=== PATIENT | male | born 1950 | race Caucasian/White ===

== ENCOUNTER 2017-03-05 06:48 | Day surgery (SDC) | payer MEDICARE, MEDICAID ==
[2017-03-05] VITALS (7 sets, daily range): BP systolic 101–118; BP diastolic 43–73
[~2017-03-05] VITALS: Ht 172.7 cm; Wt 73.9 kg
[2017-03-05 06:43] LABS: LYMPH # 3.6 K/mm3 (0.7-4.5); LYMPH % 39.9 % (10-50)
[~2017-03-05 06:48] MED LIST: FLAXSEED OIL1000 MG PO; FLOMAX 0.4MG C0.4 MG PO; LEVOTHYROXIN0.075 M1 PO; LOSARTAN POTASS1 TA1 PO; LOSARTAN POTASS50 MG PO; METOPROLOL TART50 MG PO; NATURAL ZINC50 MG PO; NIASPAN500 MG PO; RANITIDINE HCL150 MG PO; VERAPAMIL SR 2240 MG PO
--- NOTE | 2017-03-05 06:53 | Emergency Room Report ---
History of Present Illness Time Seen by MD Hernandez Presenting Problem in Triage Pt arrived:Walked Presenting Problem:PT C/O MID STERNAL CHEST PRESSURE THAT WOKE HIM UP THIS MORNING. PT ALSO C/O NAUSEA AND SOB SINCE THIS MORNING. 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 N Clinical Suspician of Infection? N Mental Status: 1 - Regular (Normal Baseline) Sepsis Risk:Low Sepsis Risk Have you (or family members/close friends) recently traveled outside the [place]? N If Yes, where/when: Have you had exposure to infectious disease within the past month? N TB? Other? Specify: Source patient, RN notes reviewed, family, old records Exam Limitations no limitations Comment pt reports pressure like chest pain yesterday and today - pt with sob assoc this pain - he has no known ht disease- Cardiac Chest Pain Chest pain indicative of cardiac Yes Timing/Duration 1-3 hours, intermittent Severity/Quality moderate, pressure Location central Chest Pain Radiation no radiation Activities at Onset light activity Nitro Today/Relief 0.4 mg x 1, provided by ED, mild relief Aspirin Treatment Today 325 mg x 1, provided by ED Beta antoinette treatment today no beta antoinette taken Cardiac risk factors + family history, HTN controlled Prior Workup/Intervention stress test Timing/Duration this morning Severity moderate ALLERGIES Coded Allergies: codeine (NA-HALLUCINATIONS 08/22/16) paroxetine (08/22/16) sertraline (UPSET STOMACH 08/22/16) Home Medications Reported Medications VERAPAMIL HCL (Verapamil ER) 240 MG PO DAILY Ranitidine Hcl (Ranitidine 150MG) 150 MG PO BID Levothyroxine Sodium (Levothyroxine 0.075MG) 0.05 MG PO DAILY LOSARTAN/HYDROCHLOROTHIAZIDE (Losartan-Hctz 100-25 MG Tab) 1 TAB PO DAILY #30 History Medical History General CAD? No Angina: No VT: No Hypertension? Yes Hyperlipidemia? Yes CHF? No DVT? No PE? No COPD? No Asthma? Yes Anemia? No GERD? No Gastric ulcers? No GI Bleed? No Hernia? No Thyroid Problems? Yes Hypothyroidism? No CVA? No Seizures? No Diabetes? No Renal Insuffiency? No End Stage Renal Disease? No UTI? No Stones? Yes BPH? No GB Disease: No Nephritic Syndrome? No Asplenia? No Hepatitis? No Sickle Cell Disease? No Arthritis? Yes Migraines? No Cataracts? No Glaucoma? No HIV? No TB? No Anxiety? No Depression? No Cancer? No More? No Immunization Hx DT/Tetanus 5-10 YRS Flu REFUSES Pneumonia REFUSES Surgical Hx Previous Surgery?Y L LEG TUMOR REMOVED 1980 L EAR SURGERY 4-5X'S Family History Family Hx Diabetes No CAD Yes Hypertension Yes Hyperlipidemia No Cancer No TB No Social History Smoking Hx Smoker: Former Smoker Tobacco: Yes Type Cigarettes Packs/day < 1 Pack Alcohol Alcohol: No Drugs none Review of Systems All Other Systems Reviewed and Negative Constitutional denies fever Eyes denies drainage ENT denies: ear pain, epistaxis, throat pain. Respiratory see HPI, denies cough, shortness of breath Cardiovascular see HPI, chest pain, denies palpitations, denies syncope Gastrointestinal denies abdominal pain, denies diarrhea, denies vomiting Genitourinary denies: dysuria, frequency, hesitancy, hematuria. Musculoskeletal denies back pain, denies joint pain, denies joint swelling, denies neck pain Skin denies rash Psychiatric/Neurological denies headache, denies seizure Physical Exam Vital Signs Vital Signs Date Time Temp Pulse Resp B/P Pulse O2 O2 Flow FiO2 Ox Delivery Rate 03/05 0809 66 18 138/80 98 03/05 0733 65 18 135/72 93 03/05 0656 18 03/05 0630 97.7 69 20 158/94 98 - WBC >12,000 or <4,000 or 10% bands? 2 or more SIRS Criteria Met? B/P:135/72 MAP:115 Creatinine >2.0? UA output<0.5ml/kg/hr for 2 hrs? Platelet count >100,000? Lactate >2.0mmol/1? INR >1.2 or PTT > than 60 sec? Evidence of Organ Dysfunction? Provider documented clinical suspician of infection? N Sepsis Criteria Count: 1 Sepsis Risk: Low Sepsis Risk General Appearance no apparent distress Eye Exam - bilateral eye PERRL, bilateral eye EOMI Ear, Nose, Throat normal ENT inspection Neck supple Respiratory Status No: respiratory distress. Lung Sounds bilateral: lungs clear. 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 No Results/Orders Laboratory Tests 03/05/17 0635: Triglycerides 172, Cholesterol 225 H, LDL Cholesterol 144.6 H, VLDL Cholesterol 34.4, HDL Cholesterol 46.0 03/05/1735: Sodium Cancelled, Potassium Cancelled, Chloride Cancelled, Carbon Dioxide Cancelled, BUN Cancelled, Creatinine Cancelled, Estimated Creat Clear Cancelled, Estimated GFR (MDRD) Cancelled, Glucose Cancelled, Calcium Cancelled, Total Bilirubin Cancelled, AST Cancelled, ALT Cancelled, Alkaline Phosphatase Cancelled, Total Protein Cancelled, Albumin Cancelled, Globulin Cancelled, Albumin/Globulin Ratio Cancelled 03/05/1735: Sodium 139, Potassium 3.9, Chloride 102, Carbon Dioxide 30, BUN 13, Creatinine 1.0, Estimated Creat Clear 77, Estimated GFR (MDRD) 75, Glucose 137 H, Calcium 9.0, Total Bilirubin 0.5, AST 25, ALT 33, Alkaline Phosphatase 74, Creatine Kinase 391 H, CK-MB (CK-2) Rel Index 0.9, CK and CKMB Interp 3.4, Troponin I 0.02, Total Protein 7.3, Albumin 3.7, Globulin 3.6 H, Albumin/Globulin Ratio 1.0 L, WBC 9.1, RBC 4.88, Hgb 15.0, Hct 44.2, MCV 90.6, RDW 12.5, Plt Count 280 , MPV 5.4 L, Gran % 45.5, Gran # 4.1, Lymphocytes % 39.9, Monocytes % 7.9, Eosinophils % 5.8, Basophils % 0.9, Lymphocytes # 3.6, Monocytes # 0.7, Eosinophils # 0.5 H, Basophils # 0.1, PUBS MCHC 33.9, MCH 30.7 Current Medication Orders Sig/Carrie Start time Last Medication Dose Route Stop Time Status Admin Nitroglycerin 1 IN ONCE ONE 03/05 0715 DC 03/05 TP 03/05 0716 0712 Nitroglycerin 0 .STK-MED ONE 03/05 0709 DC .ROUTE Nitroglycerin 0.4 MG [id number] PRN 03/05 0700 AC 03/05 SL 0656 Nitroglycerin 0 .STK-MED ONE 03/05 0651 DC SL Aspirin 324 MG ONCE ONE 03/05 0645 DC 03/05 PO 03/05 0646 0639 Aspirin 0 .STK-MED ONE 03/05 0637 DC .ROUTE Orders Procedure Date/time Status ECHO ADULT 03/05 0739 Active LIPID PROFILE 03/05 0739 Complete CHEST-PORTABLE 03/05 0715 Active ELECTROCARDIOGRAM REQUEST 03/05 0634 Active AA CM CONSULT NEEDED QUERY 03/05 0634 Active IV SALINE LOCK 03/05 0634 Active CBC WITH AUTO DIFF 03/05 0634 Complete CARDIAC ENZYMES 03/05 0634 Complete CHEM 12 PROFILE 03/05 0634 Complete 12 LEAD EKG-JD (INITIAL) 03/05 UNK Active 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 ST/Twave chgs XRAY/CT/US XRAY/CT/US XRAY chest XR interpretation by reviewed by me Xray Results abnormal (cm) Departure Departure Time of Disposition 0744 Disposition DC Home or Self Care(routine) Clinical Impression Primary Impression: Angina pectoris Condition STABLE Referrals Jazzy ARROYO,Christa Negrete (Family) discussed with dr bishop and will ask dr rubi to see pt in the ed ED Critical Care Critical Care No at 0824
--- NOTE | 2017-03-05 08:40 | CONSULT NOTE ---
Standard Demographics Patient Demo Date of Consultation: 03/05/17 Referring Provider: Dipika Davis MD Reason for Consultation: Angina PRIMARY DIAGNOSIS: chest pain Problem list Problem list: 1. Hypertension 2. Hyperlipidemia 3. Patient was adopted and does not know his family history 4. History of normal stress test with nuclear imaging, 2012. History of present illness: History of present illness: 66-year-old white male with history of hypertension and hyperlipidemia presented to the emergency department for recurrent episodes of chest tightness, arm discomfort and shortness of breath with diaphoresis that wake him from sleep. 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 Symptoms have resolved with rest previously. Over the last few days he has noticed the same symptoms occurring at night and waking him from sleep. This is alarming him and he came to the emergency department for further evaluation. Patient currently pain-free. Initial troponins normal. Electrocardiogram is sinus rhythm without acute ST elevation. Cardiology consulted for further evaluation and recommendations. Past Medical History: General: Hypertension Yes CVA No Seizures No TB No COPD No Asthma Yes Diabetes No Angina No HI No Hyperlipidemia Yes Urinary Yes Cancer No Ulcers No GB Disease No Other OLD LT LEG TUMOR,LT DVT Past Surgical HX: Previous Surgery?Y L LEG TUMOR REMOVED 1980 L EAR SURGERY 4-5X'S Allergies Coded Allergies: codeine (NA-HALLUCINATIONS 08/22/16) paroxetine (08/22/16) sertraline (UPSET STOMACH 08/22/16) Home medications: Reported Medications VERAPAMIL HCL (Verapamil ER) 240 MG PO DAILY Ranitidine Hcl (Ranitidine 150MG) 150 MG PO BID Levothyroxine Sodium (Levothyroxine 0.075MG) 0.05 MG PO DAILY LOSARTAN/HYDROCHLOROTHIAZIDE (Losartan-Hctz 100-25 MG Tab) 1 TAB PO DAILY #30 Current Medications: Current Medications Nitroglycerin 1 IN ONCE ONE TP (DC) Nitroglycerin 0 .STK-MED ONE .ROUTE (DC) Nitroglycerin 0.4 MG [id number] PRN SL Nitroglycerin 0 .STK-MED ONE SL (DC) Aspirin 324 MG ONCE ONE PO (DC) Aspirin 0 .STK-MED ONE .ROUTE (DC) Immunization HX DT/Tetanus 5-10 YRS AGO Flu REFUSES Pneumonia REFUSES Family history Family HX Family Hx Insignificant No Diabetes No CAD Yes Hypertension Yes Hyperlipidemia No Cancer No TB No Social Hx: Smoking HX Tobacco Yes Type Cigarettes Packs/day < 1 PACK Alcohol Alcohol: No Hx of Drug Use Drug Use? No Patien't marital status is single Patient's support system is good Review of systems: Constitutional weakness. Respiratory SOB with excertion. Cardiovascular chest pain Gastrointestinal/Abdominal No no symptoms reported Genitourinary No: no symptoms reported. Musculoskeletal No: no symptoms reported. Neurological No: no symptoms reported. Exam: Admission Vital Signs: 1ST Vital Signs Result Date Time Pulse Ox 98 03/05 630 B/P 158/94 03/05 630 Temp 97.7 03/05 630 Pulse 69 03/05 0630 Resp 20 03/05 630 Last Vital Signs: Vital Signs Result Date Time Pulse Ox 98 03/05 0809 B/P 138/80 03/05 0809 Pulse 66 03/05 0809 Resp 18 03/05 0809 Temp 97.7 03/05 630 Exam General appearance: alert, awake, no acute distress Neck: no carotid bruit, no JVD Cardiovascular: regular rate & rhythm, soft systolic ejection murmur noted at the base grade 1-2 out of 6. Respiratory: clear to auscultation, good air movement, normal breath sounds ABD: soft, no tenderness Extremities: moves all, no peripheral edema Neuro: alert, intact, oriented Laboratory data: Laboratory Tests 03/05/17 0635: Triglycerides 172, Cholesterol 225 H, LDL Cholesterol 144.6 H, VLDL Cholesterol 34.4, HDL Cholesterol 46.0 03/05/17 0635: Sodium 139, Potassium 3.9, Chloride 102, Carbon Dioxide 30, BUN 13, Creatinine 1.0, Estimated Creat Clear 77, Estimated GFR (MDRD) 75, Glucose 137 H, Calcium 9.0, Total Bilirubin 0.5, AST 25, ALT 33, Alkaline Phosphatase 74, Creatine Kinase 391 H, CK-MB (CK-2) Rel Index 0.9, CK and CKMB Interp 3.4, Troponin I 0.02, Total Protein 7.3, Albumin 3.7, Globulin 3.6 H, Albumin/Globulin Ratio 1.0 L, WBC 9.1, RBC 4.88, Hgb 15.0, Hct 44.2, MCV 90.6, RDW 12.5, Plt Count 280 , MPV 5.4 L, Gran % 45.5, Gran # 4.1, Lymphocytes % 39.9, Monocytes % 7.9, Eosinophils % 5.8, Basophils % 0.9, Lymphocytes # 3.6, Monocytes # 0.7, Eosinophils # 0.5 H, Basophils # 0.1, PUBS MCHC 33.9, MCH 30.7 Plan: Assessment: 1. Angina pectoris previously class III now currently class IV with symptoms waking patient up at night. Initial troponin normal with no acute electrocardiogram changes. Preliminary echocardiogram today shows apical akinesis. 2. History of hypertension 3. Hyperlipidemia with LDL 144. Recommendations: Discussed with Dr. Gómez who did review the echocardiogram and confirmed apical akinesis. In light of an abnormal cardiovascular test and symptoms of angina pectoris class IV patient will be sent for cardiac catheterization today. Further recommend patient is to follow. Patient will be started on a statin due to elevated LDL. at 0842
--- NOTE | 2017-03-05 10:31 | RADIOLOGY REPORT PS360 ---
CARDIAC CATHETERIZATION DATE OF CATHETERIZATION:03/05/2017 9:44 AM PROCEDURES: 1. Left heart catheterization 2. Left ventriculogram 3. Selective coronary angiogram INDICATION FOR TEST: 1. Unstable angina 2. Abnormal echo anterior apical hypokinesis Informed consent was obtained prior to the procedure. COMPLICATIONS: None ESTIMATED BLOOD LOSS: Less than 10 ml. TECHNIQUE: One percent lidocaine used to anesthetize the right anterior aspect of the wrist. The right radial artery was accessed via the Seldinger technique. A 6 Albanian sheath was placed in the right radial artery. 2.5 mg of verapamil, 800 mcg of nitroglycerin and 5000 U Heparin were given through the arterial sheath. The Delaney catheter was also used to perform left heart catheterization and left ventriculography. At the end of the procedure the patient was transferred to the post-op holding area in stable condition for arterial sheath removal. ANGIOGRAPHIC RESULTS: 1. The left main artery normal 2. The left anterior descending artery proximally has a concentric 50% stenosis and then gives off a large trifurcating first septal substation wireman. The septal substation wireman has an ostial 80% stenosis. Immediately distal to the septal substation wireman the LAD is bluntly occluded however the mid to distal LAD does fill via mostly left the left collaterals 3. The circumflex artery is a nondominant vessel and has a proximal 90% stenosis just prior to to medium sized obtuse marginal arteries 4. The right coronary artery is a large dominant vessel and has proximal 20 and 30% stenoses with a mid vessel 60-70% concentric stenosis. There are right to left collaterals supplying the LAD 5. The VANCE ventriculogram reveals mild left ventricular dilatation anterior apical hypokinesis estimated ejection fraction 40% 6. The left ventricular end-diastolic pressure severely elevated 40 mmHg IMPRESSION: 1. Severe three-vessel coronary artery disease as described above 2. Patient has a normal EKG with completely normal R waves route the precordium. Given the LAD is collateralized I suspect the anterior apical wall simply hibernating. 3. Left ventricular dysfunction with severe anteroapical wall motion abnormality 4. Severely elevated LVEDP PLAN: 1. Aspirin 81 mg a day daily 2. Start patient on high-dose statin's 3. Diuresis in order to crease severely elevated LVEDP 4. Spoke with Dr. Emory Quiles at the [facility] and arrangements are being made for transportation today with anticipated bypass surgery in the very near future
--- NOTE | 2017-03-05 10:31 | RADIOLOGY REPORT PS360 ---
CARDIAC CATHETERIZATION DATE OF CATHETERIZATION:03/05/2017 9:44 AM PROCEDURES: 1. Left heart catheterization 2. Left ventriculogram 3. Selective coronary angiogram INDICATION FOR TEST: 1. Unstable angina 2. Abnormal echo anterior apical hypokinesis Informed consent was obtained prior to the procedure. COMPLICATIONS: None ESTIMATED BLOOD LOSS: Less than 10 ml. TECHNIQUE: One percent lidocaine used to anesthetize the right anterior aspect of the wrist. The right radial artery was accessed via the Seldinger technique. A 6 Upper Sorbian sheath was placed in the right radial artery. 2.5 mg of verapamil, 800 mcg of nitroglycerin and 5000 U Heparin were given through the arterial sheath. The Delaney catheter was also used to perform left heart catheterization and left ventriculography. At the end of the procedure the patient was transferred to the post-op holding area in stable condition for arterial sheath removal. ANGIOGRAPHIC RESULTS: 1. The left main artery normal 2. The left anterior descending artery proximally has a concentric 50% stenosis and then gives off a large trifurcating first septal human resources trainee. The septal human resources trainee has an ostial 80% stenosis. Immediately distal to the septal human resources trainee the LAD is bluntly occluded however the mid to distal LAD does fill via mostly left the left collaterals 3. The circumflex artery is a nondominant vessel and has a proximal 90% stenosis just prior to to medium sized obtuse marginal arteries 4. The right coronary artery is a large dominant vessel and has proximal 20 and 30% stenoses with a mid vessel 60-70% concentric stenosis. There are right to left collaterals supplying the LAD 5. The VANCE ventriculogram reveals mild left ventricular dilatation anterior apical hypokinesis estimated ejection fraction 40% 6. The left ventricular end-diastolic pressure severely elevated 40 mmHg IMPRESSION: 1. Severe three-vessel coronary artery disease as described above 2. Patient has a normal EKG with completely normal R waves route the precordium. Given the LAD is collateralized I suspect the anterior apical wall simply hibernating. 3. Left ventricular dysfunction with severe anteroapical wall motion abnormality 4. Severely elevated LVEDP PLAN: 1. Aspirin 81 mg a day daily 2. Start patient on high-dose statin's 3. Diuresis in order to crease severely elevated LVEDP 4. Spoke with Dr. Emory Quiles at the [facility] and arrangements are being made for transportation today with anticipated bypass surgery in the very near future
--- NOTE | 2017-03-05 13:01 | RADIOLOGY REPORT PS360 ---
PROCEDURE: 2-D M-mode and color Doppler study INDICATIONS FOR THE TEST: Chest pain + COPD Heart Murmur Tobacco Smoking Palpitations Fatigue Syncope Edema Hypertension+Diabetes Mellitus Rheumatic Fever SOB+MOSQUEDA Obesity Hyperlipidemia Family History HD Additional History PATIENT INFORMATION HEIGHT: 68 WEIGHT:163 GENDER: Male B/P:131/72 2-D/M-MODE INTERPRETATION: 2-D MEASUREMENTS OBSERVED VALUES IN CMS Right Ventricular Dimension (RVDd) 2.2 Interventricular Septum (Thickness)(IVsd) 0.8 Left Ventricular Internal Dimensions(LVIDd) 5.6 Left Ventricular Posterior Wall (Thickness)(LVPWd) 0.7 Aortic Root 3.7 Aortic Cusp Separation 1.9 Left Atrial Dimensions (LAD) 3.2 2D 1. Left atrium is qualitatively mildly enlarged, left ventricle is normal size, there is no concentric left ventricular hypertrophy, visually estimated ejection fraction approximately 40%, there is marked hypokinesis involving the mid to distal septum ,anteroapical and apical wall. 2. The right atrium and right ventricle are normal size and contractility. 3. The aortic valve is minimally thickened and calcified leaflet continue to display mobility. 4. The mitral valve has mitral calcification there is no mitral stenosis. 5. The tricuspid valve is structurally normal. 6. The pulmonic valve is not well visualized. 7. No significant pericardial effusion noted. DOPPLER INTERROGATION: Doppler interrogation of the aortic mitral and tricuspid valve reveals presence of mild mitral and tricuspid regurgitation, tricuspid regurgitant jet velocity insufficient for calculation of the right ventricular systolic pressure. Diastolic parameters are inconclusive, trace aortic insufficiency also seen. CONCLUSION: 1. Normal left ventricular size, visually estimated ejection fraction 40% with multiple segmental wall motion abnormality described above. 2. Trace aortic, mild mitral and tricuspid regurgitation, tricuspid and enteric velocity insufficient penetration right ventricular systolic pressure. 3. No significant pericardial effusion noted.
== END 2017-03-05 11:29 | disposition home or self-care (01) ==
LOC: ER 06:48 → CATHLAB 06:48 → EDSTATUS 11:00 → CATHLAB 11:29
PROVIDERS: Emergency Medicine; Internal Medicine
PROC: B2111ZZ Fluoroscopy of Multiple Coronary Arteries using Low Osmolar Contrast (ICD-10-PCS; 2017-03-05)
PROC: B2151ZZ Fluoroscopy of Left Heart using Low Osmolar Contrast (ICD-10-PCS; 2017-03-05)
PROC: 4A023N7 Measurement of Cardiac Sampling and Pressure, Left Heart, Percutaneous Approach (ICD-10-PCS; principal; 2017-03-05 11:00)
DX: I25.110 Atherosclerotic heart disease of native coronary artery with unstable angina pectoris (principal)
CPT/HCPCS: C1769; J1644; Q9967

== ENCOUNTER → 2017-06-24 | Outpatient (CLI) | payer MEDICARE, MEDICAID ==
[2017-06-24 08:30] LABS: BILIRUBIN, INDIRECT 0.41 mg/dL (0-0.9)
--- NOTE | 2017-06-25 16:58 | RADIOLOGY REPORT PS360 ---
PROCEDURE: 2-D M-mode and color Doppler study INDICATIONS FOR THE TEST: Chest pain COPD Heart Murmur Tobacco Smoking Palpitations Fatigue Syncope Edema HypertensionXDiabetes Mellitus Rheumatic Fever SOB MOSQUEDA Obesity HyperlipidemiaX Family History HD Additional History CM,CABG,CAD PATIENT INFORMATION HEIGHT: 67 WEIGHT:163 GENDER: Male B/P:134/72 2-D/M-MODE INTERPRETATION: 2-D MEASUREMENTS OBSERVED VALUES IN CMS Right Ventricular Dimension (RVDd) 1.9 Interventricular Septum (Thickness)(IVsd) 1.2 Left Ventricular Internal Dimensions(LVIDd) 5.5 Left Ventricular Posterior Wall (Thickness)(LVPWd) .9 Aortic Root 3.8 Aortic Cusp Separation 2.4 Left Atrial Dimensions (LAD) 3.3 2D 1. Left atrium is mildly enlarged, left ventricle is normal size, there is mild concentric left ventricular hypertrophy, visually estimated ejection fraction 40%, there is marked hypokinesis involving the distal septum , apical and anteroapical wall. 2. The right atrium and right ventricle are normal size and contractility. 3. The aortic valve is thickened and calcified, leaflet mobility. 4. The mitral and tricuspid valve are grossly normal. 5. The pulmonic valve is poorly visualized. 6. No significant pericardial effusion noted. DOPPLER INTERROGATION: Doppler interrogation of the aortic, mitral and tricuspid valvular presence of mild mitral and tricuspid regurgitation, tricuspid regurgitant jet velocity is insufficient for calculation of the right ventricular systolic pressure, diastolic parameters are inconclusive. CONCLUSION: 1. Mildly enlarged left atrium, normal left ventricular size, mild concentric left ventricular hypertrophy, visually estimated ejection fraction 40% with multiple segmental wall motion abnormalities described above, diastolic parameters are inconclusive. 2. Mild mitral and tricuspid regurgitation. 3. No significant pericardial effusion noted.
== END ==
LOC: LAB 07:41 → RT 07:41
PROVIDERS: Internal Medicine
DX: I42.8 Other cardiomyopathies (principal); I25.10 Atherosclerotic heart disease of native coronary artery without angina pectoris; I10 Essential (primary) hypertension; E78.5 Hyperlipidemia, unspecified